=== PATIENT | female | born 1985 | race Caucasian/White ===

== ENCOUNTER 2016-11-07 09:56 | Inpatient (IN) ==
[2016-11-07 08:05] LABS: Bilirubin,Urine Negative (Negative); Blood,Urine Moderate (Negative); Clarity,Urine Cloudy (Clear); Color,Urine Yellow (Yellow); Glucose,Urine (UA) Normal (Normal); Ketones,Urine 15 mg/dL (Negative); Leukocyte Esterase,Urine Negative (Negative); Nitrite,Urine Negative (Negative); PH,Urine 6.5 pH Units (5.0-8.0); Protein,Urine Negative (Neg-Trace); Specific Gravity,Urine 1.023 (1.010-1.025); Urobilinogen,Urine Normal (Normal)
[2016-11-07 08:07] LABS: Bacteria,Urine None Seen per hpf (None-Few); Hyaline Casts,Urine None Seen per lpf (None-Few); Squamous Epithelial Cell,Urine Many per lpf (None-Few)
[2016-11-07 08:26] LABS: Mucus,Urine Few (Few)
--- NOTE | 2016-11-07 08:47 | OB/GYN History & Physical ---
Date of Encounter: 11/07/16 Time of Encounter: 08:45 Assessment and Plan (1) 35 weeks gestation of Current visit: Yes Status: Acute monitor HR and uterine tone with external monitoring Positive for rupture of membranes Plan for normal spontaneous vaginal delivery Check labs Start group B strep prophylaxis History of Present Illness Chief complaint: spotting and cramping HPI: Ms. Zayas is a 31 year old female at 35 weeks gestation here today with complaint of spotting and cramping. She had the urge to he frequently with very little urination this morning and noted some spotting. She then had some suprapubic and back cramping. The pain is relieved by sitting and standing although at times she has shooting pain that is unrelieved by motion changes. She reports good movement. She did have a [address]. Past Med Surg Social Fam HX - Past Medical History Medical history: no medical history Psychiatric history: no psych history - Past Surgical History Surgical History: no surgical history - Social History Smoking Status: Never smoker Alcohol use: none Drug use: none - Family History Mother Living Status: Still Living Hx Family Cardiac Disorders: No Hx Family Respiratory Disorders: No Hx Family Cancer: No Hx Family GI Disorders: No Hx Family Genitourinary Disorders: No Hx Family Endocrine Disorder: No Hx Family Musculoskeletal Disorders: No Hx Family Neuromuscular Disorders: No Hx Family Neurologic Disorders: No Hx Family HEENT Disorders: No Hx Family Autoimmune Disorders: No Hx Family Reproductive Disorders: No Hx Family Psychosocial Disorders: No Hx Family Medical Disorders: No Obstetrical History - Pregnancies : 1 Medications and Allergies Vit Calc,Iron,Folic [ Vitamins] 1 tab PO DAILY 11/07/16 [ History] Allergies No Known Allergies Allergy (Verified 11/07/16 07:56) Review of System OB - Constitutional Constitutional ROS IM: no headache(s) - Eyes Eyes: bilateral: blurred vision (negative) - Cardiovascular Cardiovascular: pedal edema - Genitourinary Genitourinary: pelvic pain, urinary frequency, vaginal discharge (Mucus), no dysuria - Muscloskeletal Musculoskeletal: back pain Exam - Constitutional Constitutional: well developed, well nourished, no acute distress, average body habitus - HEENT HEENT: Normocephaly, Mucus Membranes Moist - Neck Neck exam: supple - Lungs Respiratory exam: CTAB - Cardiovascular Cardiovascular exam: RRR, +S1, +S2 - Abdomen Abdomen: Present: bowel sounds normal, gravid, non tender - Extremities Extremities exam: pedal edema, warm Results Abnormal lab results Urine Clarity Cloudy (Clear) A 11/07/16 07:50 Urine Ketones 15 mg/dL (Negative) H 11/07/16 07:50 Urine Blood Moderate (Negative) H 11/07/16 07:50 Urine Microscopic RBC 5-15 per hpf (0-3) H 11/07/16 07:50 Urine Microscopic WBC 3-5 per hpf (0-3) H 11/07/16 07:50 Ur Squamous Epith Cells Many per lpf (None-Few) H 11/07/16 07:50 All other labs normal. - VTE Reasons for not Prescribing Prophylaxis: Medical contraindication
[~2016-11-07 09:56] MED LIST: Penicillin G Potassium 5,000,000 UNIT in D5% in Water (Mini-Bag+) 100 ML IVPB ONE
[2016-11-07] MEDS ORDERED: Ringers Solution, Lactated 1,000 ML IVC SCH (10:15)
[2016-11-07 10:39] LABS: Basophils % 0.2 %; Eosinophils % 0.2 %; Hematocrit 34.4 % (35.3-44.9); Hemoglobin 11.6 g/dL (11.5-15.4); Immature Granulocytes % 0.7 % (0-4); Immature Platelets 8.2 % (1.1-6.1); Mean Corpuscular HGB Conc 33.7 g/dL (31.6-35.5); Mean Corpuscular Hemoglobin 30.7 pg (28.0-33.3); Mean Platelet Volume 11.8 fL (9.4-12.4); Monocytes # 0.5 K/mcL (0.0-1.3); Monocytes % 3.8 %; Neutrophils # 10.7 K/mcL (1.6-8.9); Platelet Count 212 K/mcL (140-400); Red Blood Count 3.78 M/mcL (3.82-4.97); Red Cell Distribution Width 13.8 % (11.5-14.5); Segmented Neutrophils % 87.1 %
[2016-11-07] MEDS ORDERED: Bupivacaine-MPF 0.25% 10 ML VIAL EP ONE (10:48)
[2016-11-07] MEDS ORDERED: *HR* FentaNYL (PF) 100 MCG/2 ML VIAL EP ONE (10:48)
[2016-11-07] MEDS ORDERED: Ondansetron 4 MG/2 ML VIAL IVP PRN (10:48)
[2016-11-07] MEDS ORDERED: EPHEDrine 50 MG/ML VIAL IVP PRN (10:48)
--- NOTE | 2016-11-07 10:51 | Anesthesia Evaluation PreOp ---
Date of Encounter: 11/07/16 Time of Encounter: 10:49 - Past History Planned Operation: VIRAJ Cardiac History: Denies any Significant Hx Pulmonary History: Denies Any Significant HX L D RN History: Denies Any Significant HX Other Medical History: Denies Any Significant HX Anesthesia History: No Prior Anesthetic Complications, Past Anesthesia (wisdom teeth extraction without complications) : Yes Alcohol Use: none Drug use: none Medications and Allergies Vit Calc,Iron,Folic [ Vitamins] 1 tab PO DAILY 11/07/16 [ History] Allergies No Known Allergies Allergy (Verified 11/07/16 07:56) - Meds/Allergy Pre-op Review Medications Reviewed: Yes Allergies Reviewed: Yes Beta Blockers on Current Med List: No Anesthesia Results - Labs 11/07/16 10:25 Anesthesia Exam BP 126/74 R 18 P 85 T 97.5 Height: 5'8" Weight: 82.1kg NPO (# of Hours): 14 Pain Scale: 6 Pain Scale Used: Numeric (1 - 10) - HEENT Pupil (Motor): Pupils equal Mallampati: II Teeth: Normal Oral Opening: Greater than 3 - L D RN LOC: Oriented L D RN Motor: Normal RUE, Normal LUE, Normal RLE, Normal LLE, Normal Face L D RN Sensory: Normal: RUE, LUE, RLE, LLE, Face - Cardiac Rhythm: Regular Murmur: None JVD: No Carotid Bruit: No - Pulmonary Breath Sounds: bilateral Clear Respiratory Effort: Symmetrical Anesthesia Assess/Plan ASA Score: 2 Modified [place] Scale for Level of Consciousness: Cooperative, oriented, and tranquil Anesthetic Plan: Regional Autologous Blood: No Monitoring Plan: Standard Monitors Recovery Plan: Other
[2016-11-07] MEDS ORDERED: Epidural Premix (fent/bupiv) 110 ML EP SCH (11:00)
[2016-11-07] MEDS ORDERED: Bupivacaine-MPF 0.25% 10 ML VIAL ONE (11:10)
[2016-11-07] MEDS ORDERED: *HR* FentaNYL (PF) 100 MCG/2 ML VIAL ONE (11:10)
[2016-11-07] MEDS ORDERED: Epidural Premix (fent/bupiv) 110 ML EP ONE ×2 (11:11→18:21)
--- NOTE | 2016-11-07 12:44 | Anesthesia Procedures ---
Date of Encounter: 11/07/16 Time of Encounter: 12:08 Procedures: Anesthesia - Epidural/Spinal Patient ID/Chart reviewed: Yes Patient examined: Yes OB Eval: Gestational age: 35.1 OB Eval: : 1 OB Eval: Hx Para: 0 OB Eval: Dilated at (cm): 4 OB Eval: Contractions: Non-stressed pattern Consent Obtained: Yes Supplemental Oxygen: None/Room Air Site Prep: Aseptic Technique, Sterile prep and drape, Povidone-Iodine 1% Patient position: upright Local Anesthetic: Lidocaine 1% Amount of Local Anesthetic used: 3 Touhy Needle Gauge: 18 Touhy Needle Depth (cm): 6 Catheter Depth at Skin (cm): 15 Test Dose (1.5% Lido + Epi): Volume given (mls): 3 Test Dose Result: Negative Loading Dose: 0.25% Marcaine (mls): 10 Loading Dose: Fentanyl (mcg): 100 Loading Dose Administered: Thru Catheter Infusion Med: 0.125% Bupivacaine w/ 2 mcg/ml Fentanyl Infusion Rate (mls/hr): [address]: Tegaderm, Tape Interspace Used: L3-L4 Loss of Resistance (JAVI): Yes Blood: No CSF: No Paresthesia: No Procedure: VIRAJ placement in upright position first pass without any immediate noted complications. VSS throughout. Vitals + FHT's: 1208 BP 154/90 P 70 1235 BP 105/61 P 76 FHT 130s
[2016-11-07] MEDS ORDERED: Penicillin G Potassium 2,500,000 UNIT in D5% in Water 100 ML IVPB SCH (14:00)
--- NOTE | 2016-11-07 15:02 | OB Labor Progress Note ---
Date of Encounter: 11/07/16 Time of Encounter: 15:02 Labor Progress Note - Subjective Subjective: patient doing well, has epidural, making progress without pitocin - Vital Signs Vital Signs: VSS - Cervix Cervix: 5cm/100 - Heart Tones Heart Tones: CAT 1 - Plan Plan: anticipate , cont PCN
[2016-11-07] MEDS ORDERED: Oxytocin 20 units/ LR 1000 mL 20 UNIT/1,000 ML BAG IVC ONE ×2 (17:14→22:11)
[2016-11-07] MEDS ORDERED: Lanolin 28 GM TUBE TP PRN ×2 (22:13→23:39)
[2016-11-07] MEDS ORDERED: Measles/Mumps/Rubella Vacc 0.5 ML VIAL SQ PRN ×2 (22:13→23:39)
[2016-11-07] MEDS ORDERED: Benzocaine/Menthol 56 GM AEROSOL SPRAY TP PRN ×2 (22:13→23:39)
[2016-11-07] MEDS ORDERED: Acetaminophen 325 MG TABLET PO PRN ×2 (22:13→23:39)
[2016-11-07] MEDS ORDERED: Ibuprofen 600 MG TABLET PO PRN ×2 (22:13→23:39)
[2016-11-07] MEDS ORDERED: Oxytocin 20 units/ LR 1000 mL 20 UNIT/1,000 ML BAG IVC SCH ×2 (22:15→23:39)
--- NOTE | 2016-11-08 08:01 | OB/GYN Procedure Note ---
Delivery - Delivery Date: 11/08/16 Provider: Jaquan Hendrix Intrapartum events: none Delivery induction: none Delivery monitor: external FHT Anesthesia: epidural Estimated Blood Loss: 250 - Infant (s) Infant A Delivery Date: 11/07/16 Delivery Time: 19:10 Presentation: vertex Position: JENN Gender: Male Viability: Viable Weight Gram: 2.58 kg at 1 minute: 8 at 5 mins: 9 Shoulder Dystocia: not encountered Placenta: spontaneous Cord: 3 umbilical vessels - Repair Laceration Description: Perineal - 1st Degree - Complications Delivery complications: none - Disposition Mom disposition: stable in LDR disposition: taken to nursery - Comments Comments: Chana is a 31 y/o @ 35 weeks who presented with SROM @ 2AM, 11/07. She delivered shortly afterwards a viable male weight 2580g @ 1910hrs. Placenta delivered @ 1915 hrs. Infant delivered SKYLER, 3VC, 8/9 APGARS, 1st degree laceration repaired with 2-0 vicryl, EBL 250. Mother and infant stable.
[2016-11-08] MEDS: Prenatal Vit/FA 1 EACH TABLET PO SCH (08:55)
--- NOTE | 2016-11-08 08:58 | OB/GYN Progress Note ---
Date of Encounter: 11/08/16 Time of Encounter: 08:55 - Assessment and Plan (1) Status post vaginal delivery Current Visit: Yes Status: Acute (2) delivery, delivered Current Visit: Yes Status: Acute Routine care for mother. Discussed DVT prophylaxis during her trip back to [facility]. Subjective - Subjective Principal diagnosis: Patient PPD #1 35 weeks Interval history: Patient is without complaint this morning. She states her soreness is mostly vaginal. Baby is doing well in room with her. Patient reports: appetite normal, voiding normally, pain well controlled, appetite poor, ambulating normally [place]: doing well Objective - Latest Vital Signs Latest vital signs: Vital Signs Temp Pulse Resp BP Pulse Ox 11/08/16 07:45 97.8 F 73 16 125/85 11/08/16 03:05 98 F 76 16 106/65 98 11/07/16 23:05 98.3 F 78 16 123/82 98 11/07/16 22:15 98.1 F 75 14 117/68 98 11/07/16 21:20 98 F 79 122/65 11/07/16 21:00 98.2 F 77 115/78 11/07/16 20:45 98.1 F 92 146/77 11/07/16 20:30 97.9 F 80 16 132/82 98 Intake and Output 11/07/16 11/08/16 11/08/16 23:59 07:59 15:59 Intake Total 700 / 700 Output Total 1150 / 1150 1250 / 1250 Balance -1150 / -1150 -550 / -550 Intake: Oral 700 / 700 Output: Urine 650 / 650 1250 / 1250 Catheter 500 / 500 Other: Weight 81.2 kg - Exam Lungs: bilateral: normal Chest: Normal S1, Normal S2 Extremities: Present: normal Abdomen: Present: normal appearance, soft Uterus: Present: normal, firm Uterus Position: At Umbilicus - Labs Labs: Laboratory Results - last 24 hr 11/07/16 11/07/16 11/07/16 10:25 10:25 10:25 WBC 12.3 H RBC 3.78 L Hgb 11.6 Hct 34.4 L MCV 91.0 MCH 30.7 MCHC 33.7 RDW 13.8 Plt Count 212 MPV 11.8 Immature Gran % 0.7 Seg Neutrophils % 87.1 Lymphocytes % 8.0 Monocytes % 3.8 Eosinophils % 0.2 Basophils % 0.2 Neutrophils # 10.7 H Lymphocytes # 1.0 Monocytes # 0.5 Eosinophils # 0.0 Basophils # 0.0 Immature Plt Fraction 8.2 H Hep Bs Antigen Nonreactive Blood Type A POSITIVE Antibody Screen NEGATIVE
[2016-11-08] MEDS ORDERED: Prenatal Vit/FA 1 EACH TABLET PO SCH (09:00)
[2016-11-09] MEDS: Prenatal Vit/FA 1 EACH TABLET PO SCH (07:55)
--- NOTE | 2016-11-09 07:58 | Discharge Summary ---
Date of Encounter: 11/09/16 Time of Encounter: 07:53 - Discharge Diagnosis (1) 35 weeks gestation of Priority: Primary Status: Acute (2) Mother currently breast-feeding Priority: Primary Status: Acute - Discharge Medications Prescriptions: Ibuprofen [Motrin] 600 mg PO Q6HR PRN #20 tablet PRN Reason: Cramping Breast Pump [BREAST PUMP] 1 each .ROUTE AD #1 each Docusate [Colace] 100 mg PO BID PRN #20 capsule PRN Reason: Constipation Lanolin 1 appl TP QID PRN #1 tube PRN Reason: Home Medications: Vit Calc,Iron,Folic [ Vitamins] 1 tab PO DAILY 11/07/16 [ History] Breast Pump [BREAST PUMP] 1 each .ROUTE AD #1 each 11/09/16 [Rx] Docusate [Colace] 100 mg PO BID PRN #20 capsule 11/09/16 [Rx] Ferrous Sulfate 325 mg PO DAILY tablet 11/09/16 [Rx] Ibuprofen [Motrin] 600 mg PO Q6HR PRN #20 tablet 11/09/16 [Rx] Lanolin 1 appl TP QID PRN #1 tube 11/09/16 [Rx] Allergies/Adverse Reactions: Allergies No Known Allergies Allergy (Verified 11/07/16 07:56) Data Procedures and tests throughout hospitalization: Laboratory Tests 11/07/16 11/07/16 11/07/16 07:50 10:25 10:25 WBC RBC Hgb Hct MCV MCH MCHC RDW Plt Count MPV Immature Gran % Seg Neutrophils % Lymphocytes % Monocytes % Eosinophils % Basophils % Neutrophils # Lymphocytes # Monocytes # Eosinophils # Basophils # Immature Plt Fraction Urine Color Yellow Urine Clarity Cloudy A Urine pH 6.5 Ur Specific [place] 1.023 Urine Protein Negative Urine Glucose (UA) Normal Urine Ketones 15 H Urine Blood Moderate H Urine Nitrite Negative Urine Bilirubin Negative Urine Urobilinogen Normal Ur Leukocyte Esterase Negative Urine Microscopic RBC 5-15 H Urine Microscopic WBC 3-5 H Ur Squamous Epith Cells Many H Urine Bacteria None Seen Hyaline Casts None Seen Urine Mucus Few Urine Yeast Test Not Performed Ur Culture Indicated? NO Hep Bs Antigen Nonreactive Blood Type A POSITIVE Antibody Screen NEGATIVE 11/07/16 10:25 WBC 12.3 H RBC 3.78 L Hgb 11.6 Hct 34.4 L MCV 91.0 MCH 30.7 MCHC 33.7 RDW 13.8 Plt Count 212 MPV 11.8 Immature Gran % 0.7 Seg Neutrophils % 87.1 Lymphocytes % 8.0 Monocytes % 3.8 Eosinophils % 0.2 Basophils % 0.2 Neutrophils # 10.7 H Lymphocytes # 1.0 Monocytes # 0.5 Eosinophils # 0.0 Basophils # 0.0 Immature Plt Fraction 8.2 H Urine Color Urine Clarity Urine pH Ur Specific [place] Urine Protein Urine Glucose (UA) Urine Ketones Urine Blood Urine Nitrite Urine Bilirubin Urine Urobilinogen Ur Leukocyte Esterase Urine Microscopic RBC Urine Microscopic WBC Ur Squamous Epith Cells Urine Bacteria Hyaline Casts Urine Mucus Urine Yeast Ur Culture Indicated? Hep Bs Antigen Blood Type Antibody Screen Date of admission: 11/07/16 09:56 Primary care physician: PCP NO Consults: 11/07/16 22:13 Consult to Weblogic Administrator [CONS] Routine Comment: Vaginal delivery, consult needed Discharging clinician: Dee Morfin Anticipated date of discharge: 11/09/16 - Patient Status Disposition: Home, Self-Care Condition: Good Functional capacity at discharge: independent ambulation Overall status at discharge: patient is back to baseline - Discharge Instructions Follow Up With: NO,PCP [Primary Care Provider] - - Diet and Activity Diet: regular diet Hospital Course Reason for admission: observation Delivery: Episiotomy: none Laceration: none Other procedures: none complications: none Discharge diagnosis: IUP at term delivered [place] baby: male Hospital course: Ms. Zayas is a 31 year old female previously at 35 weeks gestation admitted to L&D with complaint of spotting and cramping. She had the urge to pee frequently with very little urination and noted some spotting. She then had some suprapubic and back cramping. The pain was relieved by sitting and standing although at times she had shooting pain that was unrelieved by motion changes. She reported good movement. She did have a [address] the day before. Subsequently, her water broke and she delivered a healthy boy via spontaneous vaginal delivery. There were no lacerations. She is breast feeding. Time Attestation: Total time spent providing and/or coordinating discharge services: Exam - Constitutional Vitals: Temp Pulse Resp BP Pulse Ox 97.5 F L 79 14 147/85 99 11/08/16 20:25 11/08/16 20:25 11/08/16 20:25 11/08/16 20:25 11/08/16 20:25 General appearance IM: cooperative, A&O X 3, pleasant, no acute distress, answers questions appropriately - Respiratory Respiratory exam: Present: CTAB - Cardiovascular Cardiovascular exam IM: Present: RRR, +S1, +S2 - GI/Abdominal GI/Abdominal exam IM: normal bowel sounds, soft - Uterine Tone: Firm Uterus Position: 3 Fingers Below Umbilicus - Extremities Exam Extremities exam IM: Present: warm. Absent: pedal edema, tenderness - Attending Attestation I examined this patient and my medical decision-making was reviewed with the OVEN HEATER HELPER/PA/Advanced Practice Nurse/Resident Physician. I agree with the documented findings, disposition and treatment plan as described except to the extent set forth below.
[2016-11-09 08:06] VITALS: BP 128/87
[2016-11-11 11:54] LABS: Rubella IgG Antibody POSITIVE (POSITIVE); Varicella Zoster IgG Antibody Positive
== END 2016-11-09 15:28 | disposition home or self-care (01) | DRG 775 ==
LOC: 1NENULAB → 1NENUOBS 20:28
PROVIDERS: ADMIT Student in an Organized Health Care Education/Training Program; ATTEND Student in an Organized Health Care Education/Training Program